=== PATIENT | female | born 1995 | race Caucasian/White ===

== ENCOUNTER 2019-01-02 16:51 | Emergency (ER) | payer OTHER ==
[~2019-01-02] VITALS: Ht 170.2 cm; Wt 49.9 kg
[2019-01-02] MEDS ORDERED: LANTUS SOL100 UNIT/1 (17:56)
[2019-01-02] MEDS ORDERED: HUMALOG100 UNIT/1 (17:56)
== END 2019-01-02 20:23 | disposition home or self-care (01) ==
LOC: ER 16:51
DX: B96.0 Mycoplasma pneumoniae [M. pneumoniae] as the cause of diseases classified elsewhere (principal)

== ENCOUNTER 2019-10-02 21:46 | Emergency (ER) | payer OTHER ==
[~2019-10-02] VITALS: Ht 170.2 cm; Wt 54.4 kg
[~2019-10-02 21:46] MED LIST: HUMALOG100 UNIT/1; LANTUS SOL100 UNIT/1
== END 2019-10-03 00:59 | disposition home or self-care (01) ==
LOC: ER 21:46
DX: J03.90 Acute tonsillitis, unspecified (principal)

== ENCOUNTER 2020-02-03 16:34 | Emergency (ER) | payer OTHER ==
[~2020-02-03] VITALS: Ht 170.2 cm; Wt 56.2 kg
== END 2020-02-03 17:18 | disposition home or self-care (01) ==
LOC: ER 16:34
DX: S60.051A Contusion of right little finger without damage to nail, initial encounter (principal); W22.8XXA Striking against or struck by other objects, initial encounter; Y93.89 Activity, other specified; Y92.89 Other specified places as the place of occurrence of the external cause; Y99.8 Other external cause status

== ENCOUNTER 2020-06-30 22:59 | Emergency (ER) | payer OTHER ==
[~2020-06-30] VITALS: Ht 170.2 cm; Wt 55.3 kg
== END 2020-07-01 03:45 | disposition home or self-care (01) ==
LOC: ER 22:59
DX: O20.0 Threatened abortion (principal)

== ENCOUNTER 2021-04-28 17:20 | Emergency (ER) | payer OTHER ==
[~2021-04-28] VITALS: Ht 170.2 cm; Wt 56.2 kg
[2021-04-28] MEDS ORDERED: TUSNEL LIQUID178 ML PO (18:58)
[2021-04-28] MEDS ORDERED: DOLOGEN CAPLET1 EACH PO (18:58)
[2021-04-28] MEDS ORDERED: ZITHROMAX500 MG PO (18:58)
== END 2021-04-28 19:14 | disposition home or self-care (01) ==
LOC: ER 17:20
DX: J00 Acute nasopharyngitis [common cold] (principal); Z03.818 Encounter for observation for suspected exposure to other biological agents ruled out

== ENCOUNTER 2021-08-17 20:51 | Emergency (ER) | payer OTHER ==
[~2021-08-17] VITALS: Ht 170.2 cm; Wt 53.1 kg
[~2021-08-17 20:51] MED LIST changes: +DOLOGEN CAPLET1 EACH PO; +TUSNEL LIQUID178 ML PO; +ZITHROMAX500 MG PO
[2021-08-18] MEDS ORDERED: CEPHALEXIN500 M1 PO (05:30)
== END 2021-08-18 05:37 | disposition home or self-care (01) ==
LOC: ER 20:51
DX: N73.9 Female pelvic inflammatory disease, unspecified (principal); R10.2 Pelvic and perineal pain
CPT/HCPCS: 74177; 76830; Q9965

== ENCOUNTER 2021-08-19 11:14 | Emergency (ER) | payer OTHER ==
[~2021-08-19] VITALS: Ht 170.2 cm; Wt 52.2 kg
[~2021-08-19 11:14] MED LIST changes: +CEPHALEXIN500 M1 PO
== END 2021-08-19 12:42 | disposition home or self-care (01) ==
LOC: ER 11:14
DX: A60.04 Herpesviral vulvovaginitis (principal); L40.8 Other psoriasis

== ENCOUNTER 2021-12-14 16:46 | Emergency (ER) | payer OTHER ==
[~2021-12-14] VITALS: Ht 170.2 cm; Wt 57.6 kg
== END 2021-12-14 22:18 | disposition home or self-care (01) ==
LOC: ER 16:46
DX: R10.31 Right lower quadrant pain (principal); Z91.013 Allergy to seafood

== ENCOUNTER 2022-08-21 20:36 | Emergency (ER) | payer OTHER ==
[~2022-08-21] VITALS: Ht 170.2 cm; Wt 56.7 kg
== END 2022-08-22 00:12 | disposition home or self-care (01) ==
LOC: ER 20:36
DX: N39.0 Urinary tract infection, site not specified (principal); Z91.013 Allergy to seafood; Z91.018 Allergy to other foods

== ENCOUNTER 2023-07-25 09:02 | Emergency (ER) | payer OTHER ==
[~2023-07-25] VITALS: Ht 170.2 cm; Wt 59.0 kg
== END 2023-07-25 12:17 | disposition home or self-care (01) ==
LOC: ER 09:03
DX: S01.81XA Laceration without foreign body of other part of head, initial encounter (principal); W19.XXXA Unspecified fall, initial encounter; Y93.89 Activity, other specified; Y92.89 Other specified places as the place of occurrence of the external cause; Y99.8 Other external cause status; Z91.013 Allergy to seafood; Z91.018 Allergy to other foods

== ENCOUNTER 2024-04-17 07:18 | Emergency (ER) | payer OTHER ==
[~2024-04-17] VITALS: Ht 170.2 cm; Wt 60.8 kg
[2024-04-17] MEDS ORDERED: ALDACTONE50 MG PO (07:38)
[2024-04-17] MEDS ORDERED: DEXAMETHASONE SODIUM PHOSPHATE 4 MG/ML VIAL IM STA (09:14)
[2024-04-17] MEDS ORDERED: MECLIZINE HCL 25 MG TABLET PO STA (09:14)
== END 2024-04-17 13:54 | disposition home or self-care (01) ==
LOC: ER 07:19
DX: H81.8X9 Other disorders of vestibular function, unspecified ear (principal); Z91.013 Allergy to seafood; Z91.018 Allergy to other foods; Z20.822 Contact with and (suspected) exposure to COVID-19

== ENCOUNTER 2024-09-03 16:24 | Inpatient (IN) | payer OTHER ==
[~2024-09-03] VITALS: Ht 170.2 cm; Wt 60.8 kg
[~2024-09-03 16:24] MED LIST changes: +ALDACTONE50 MG PO
--- NOTE | 2024-09-03 16:43 | NUR ---
PACIENTE REFIERE DOLOR DE CUERPO, MALESTAR GENERAL, VOMITOS Y DIAREAS
[2024-09-03] MEDS ORDERED: FAMOtidine 10 MG/ML (4ML VIAL) IV ONE (17:00)
[2024-09-03] MEDS ORDERED: 0.9 % SODIUM CHLORIDE 500 ML IV ONE (17:00)
[2024-09-03] MEDS ORDERED: ONDANSETRON HCL 2 MG/ML VIAL IV ONE (17:00)
[2024-09-03] MEDS ORDERED: FAMOTIDINE/PF 20 MG/2 ML VIAL ONE (17:03)
[2024-09-03] MEDS ORDERED: ONDANSETRON HCL 2 MG/ML VIAL ONE (17:03)
--- NOTE | 2024-09-03 17:35 | NUR ---
SE CANALIZA VENA Y SE COLECTAN MUESTRAS DE LAB. SE ADMINISTRA MEDICAMENTO POR ORDEN MEDICA. SE COMIENZA TRATAMIENTO DE IV FLUIDS
[2024-09-03 17:42] LABS: HEMOGLOBIN 14.2 g/dL (12.0-15.00); MEAN CORPUSCULAR HEMOGLOBIN 31.1 pg (27.00-32.0); MEAN CORPUSCULAR HGB CONC 34.5 g/dl (32.0-36.0); PLATELET COUNT 240 K/uL (150-450); RED BLOOD COUNT 4.56 M/uL (4.00-6.00); RED CELL DISTRIBUTION WIDTH 12.5 % (11.5-14.5)
[2024-09-03 18:05] LABS: ALBUMIN 4.9 gm/dL (3.4-5.0); BILIRUBIN TOTAL 0.71 mg/dL (0.3-1.2); CALCIUM 9.7 mg/dL (8.5-10.1); CREATININE SERUM 0.63 mg/dL (0.55-1.02); GFR 111.72; GLOBULINA 4.1 G/DL (2.4-3.5); POTASSIUM 3.96 mEq/L (3.5-5.1)
[2024-09-03] MEDS ORDERED: KETOROLAC TROMETHAMINE 30 MG VIAL ONE (18:52)
--- NOTE | 2024-09-03 18:55 | NUR ---
SE ADMINISTRA MEDICAMENTO Y SE ENTREGA ENVASE PARA CULTIVO DE ORINA
[2024-09-03] MEDS ORDERED: KETOROLAC TROMETHAMINE 30 MG VIAL IV ONE (19:00)
[2024-09-03 20:23] LABS: URINE APPEARANCE Clear; URINE BACTERIA 162.7 uL (0.0-1933); URINE BILIRRUBIN Negative (NEGATIVE); URINE BLOOD Negative; URINE COLOR Yellow; URINE EPITHELIAL CELLS 10.9 uL (0.0-38.8); URINE GLUCOSE Negative (NEGATIVE); URINE KETONE 15 (NEGATIVE); URINE LEUKOCYTE Negative; URINE NITRATE Negative; URINE PROTEIN Negative (NEGATIVE); URINE RBC 2.2 uL (0.0-20.8); URINE UROBILINOGEN 0.2 E.U./dl; URINE WBC 3.3 uL (0.0-23.2)
[2024-09-03 21:05] LABS: HEMATOCRIT 38.4 % (36.0-45.00); HEMOGLOBIN 13.1 g/dL (12.0-15.00); MEAN CELL VOLUME 89.1 fL (80.00-100.00); MEAN CORPUSCULAR HEMOGLOBIN 30.4 pg (27.00-32.0); MEAN CORPUSCULAR HGB CONC 34.1 g/dl (32.0-36.0); PLATELET COUNT 194 K/uL (150-450); RED BLOOD COUNT 4.31 M/uL (4.00-6.00); RED CELL DISTRIBUTION WIDTH 12.6 % (11.5-14.5)
[2024-09-03] MEDS ORDERED: CEFTRIAXONE SODIUM 2,000 MG in 0.9 % SODIUM CHLORIDE 100 ML IV SCH (21:56)
[2024-09-03] MEDS ORDERED: METRONIDAZOLE/SODIUM CHLORIDE 100 ML IV SCH (21:56)
[2024-09-03] MEDS ORDERED: LACTOBACILLUS ACIDOPHILUS 1 CAP CAP PO ONE ×2 (22:00→22:06)
[2024-09-03] MEDS ORDERED: ONDANSETRON HCL 4 MG in 0.9 % SODIUM CHLORIDE 50 ML IV PRN (22:00)
[2024-09-03] MEDS ORDERED: 0.9 % SODIUM CHLORIDE 1,000 ML IV SCH (22:00)
[2024-09-03] MEDS ORDERED: ACETAMINOPHEN 500 MG GEL..CAP PO PRN (22:00)
[2024-09-03] MEDS ORDERED: PROMETHAZINE HCL 25 MG/ML AMPUL IM ONE (22:00)
[2024-09-03] MEDS ORDERED: CEFTRIAXONE SODIUM 2,000 MG VIAL ONE (22:05)
[2024-09-03] MEDS ORDERED: PROMETHAZINE HCL 25 MG/ML AMPUL ONE (22:05)
[2024-09-03 22:41] VITALS: BP 100/78
[2024-09-03 23:25] LABS: PROTHROMBIN TIME 10.9 SECONDS (9.0-11.5)
[2024-09-04 00:30] VITALS: BP 99/62; O2SAT 100
[2024-09-04 08:33] VITALS: BP 110/60; O2SAT 98
[2024-09-04 15:29] LABS: HEMATOCRIT 33.2 % (36.0-45.00); HEMOGLOBIN 11.5 g/dL (12.0-15.00); MEAN CELL VOLUME 88.6 fL (80.00-100.00); MEAN CORPUSCULAR HEMOGLOBIN 30.7 pg (27.00-32.0); MEAN CORPUSCULAR HGB CONC 34.6 g/dl (32.0-36.0); PLATELET COUNT 180 K/uL (150-450); RED BLOOD COUNT 3.75 M/uL (4.00-6.00); RED CELL DISTRIBUTION WIDTH 12.3 % (11.5-14.5)
[2024-09-04 15:45] LABS: CALCIUM 8.9 mg/dL (8.5-10.1); CREATININE SERUM 0.52 mg/dL (0.55-1.02); GFR 139.41; POTASSIUM 3.21 mEq/L (3.5-5.1)
[2024-09-04] MEDS ORDERED: FAMOTIDINE/PF 20 MG/2 ML VIAL IV SCH (17:00)
[2024-09-04 17:07] VITALS: BP 87/54; O2SAT 98
[2024-09-05 03:02] VITALS: BP 100/60; O2SAT 100
[2024-09-05 07:30] LABS: HEMATOCRIT 27.6 % (36.0-45.00); HEMOGLOBIN 9.7 g/dL (12.0-15.00); MEAN CELL VOLUME 88.9 fL (80.00-100.00); MEAN CORPUSCULAR HEMOGLOBIN 31.4 pg (27.00-32.0); MEAN CORPUSCULAR HGB CONC 35.3 g/dl (32.0-36.0); PLATELET COUNT 157 K/uL (150-450); RED CELL DISTRIBUTION WIDTH 12.4 % (11.5-14.5)
[2024-09-05 10:26] VITALS: BP 94/50; O2SAT 99
[2024-09-05 14:17] LABS: CALCIUM 9.3 mg/dL (8.5-10.1); CREATININE SERUM 0.43 mg/dL (0.55-1.02); GFR 173.6; POTASSIUM 3.53 mEq/L (3.5-5.1)
[2024-09-05 16:14] VITALS: BP 102/65; O2SAT 97
[2024-09-05] MEDS ORDERED: LACTOBACILLUS ACIDOPHILUS 1 CAP CAP PO SCH (17:00)
[2024-09-06 00:45] VITALS: BP 101/60
[2024-09-06 09:35] VITALS: BP 90/50; O2SAT 98
== END 2024-09-06 12:04 | disposition home or self-care (01) | DRG 392 ==
LOC: ER 16:27 → MEDI 22:36 → SEC-K 22:36 → MEDI 09-04 00:13
PROVIDERS: General Practice; Preventive Medicine Public Health & General Preventive Medicine; ADMIT Student in an Organized Health Care Education/Training Program; ATTEND Student in an Organized Health Care Education/Training Program
PROC: BW21ZZZ Computerized Tomography (CT Scan) of Abdomen and Pelvis (ICD-10-PCS; principal; 2024-09-03)
DX: K52.9 Noninfective gastroenteritis and colitis, unspecified (principal); R10.31 Right lower quadrant pain

== ENCOUNTER 2024-12-08 17:36 | Emergency (ER) | payer OTHER ==
[~2024-12-08] VITALS: Ht 170.2 cm; Wt 56.2 kg
[2024-12-08] MEDS ORDERED: 0.9 % SODIUM CHLORIDE 1,000 ML IV STA (18:40)
[2024-12-08] MEDS ORDERED: LACTOBACILLUS ACIDOPHILUS 1 CAP CAP PO ONE ×2 (18:45→19:01)
[2024-12-08 19:14] LABS: HEMATOCRIT 30.4 % (34.1-44.9); HEMOGLOBIN 10.8 g/dL (11.2-15.7); RED BLOOD COUNT 3.48 M/uL (3.93-5.22)
[2024-12-08 19:15] LABS: BASO % 0.3 % (0.1-1.2); EOS % 0.9 % (0.7-7.0); LYMPH # 2.64 (1.18-3.74); LYMPH % 24.2 % (19.3-53.1); MONO # 0.94 (0.24-0.82); MONO % 8.6 % (4.7-12.5); NEUT # 7.19 (1.56-6.13); NEUT % 65.7 % (34.0-71.1); PLATELET COUNT 210 K/uL (163-369)
[2024-12-08 19:22] LABS: CALCIUM 8.3 mg/dL (8.5-10.1); CREATININE SERUM 0.48 mg/dL (0.55-1.02); GFR 152.9; POTASSIUM 3.23 mEq/L (3.5-5.1)
[2024-12-08] MEDS ORDERED: METRONIDAZOLE/SODIUM CHLORIDE 500 MG/100 ML PIGGYBACK IV ONE ×2 (22:27→22:30)
[2024-12-08] MEDS ORDERED: CIPROFLOXACIN IN 5 % DEXTROSE 400 MG/200 ML PIGGYBAG IV ONE ×2 (22:27→22:30)
[2024-12-09] MEDS ORDERED: ONDANSETRON HCL 2 MG/ML VIAL ONE (00:12)
[2024-12-09] MEDS ORDERED: FAMOTIDINE/PF 20 MG/2 ML VIAL ONE (00:13)
[2024-12-09] MEDS ORDERED: ONDANSETRON HCL 2 MG/ML VIAL IV ONE (00:15)
[2024-12-09] MEDS ORDERED: FAMOTIDINE/PF 20 MG/2 ML VIAL IV ONE (00:15)
== END 2024-12-09 00:24 | disposition home or self-care (01) ==
LOC: ER 17:46
PROVIDERS: Emergency Medicine
DX: K52.89 Other specified noninfective gastroenteritis and colitis (principal); Z91.013 Allergy to seafood; Z91.018 Allergy to other foods; I10 Essential (primary) hypertension